=== PATIENT | male | born 1960 | race Caucasian/White ===

== ENCOUNTER 2020-06-23 10:57 | Emergency (ER) | payer BC, OTHER ==
[2020-06-23] MEDS ORDERED: Cyclobenzaprine 10 MG TAB ONE (11:27)
[2020-06-23] MEDS ORDERED: HYDROcodone/Acetaminophen 10/325 mg Tablet ONE (11:27)
== END 2020-06-23 12:33 | disposition home or self-care (01) ==
LOC: BURERS 10:57
DX: M51.36 Other intervertebral disc degeneration, lumbar region (principal); M47.816 Spondylosis without myelopathy or radiculopathy, lumbar region
CPT/HCPCS: 72131

== ENCOUNTER 2023-01-30 16:29 | Emergency (ER) | payer BC ==
[2023-01-30] MEDS ORDERED: Lidocaine 2% w/Epinephrine 1:200K 20 ML VIAL ONE (16:42)
[2023-01-30] MEDS ORDERED: Bacitracin 1 PK ONE (17:30)
[2023-01-30] MEDS ORDERED: Ketorolac Tromethamine 30 MG/ML VIAL ONE (17:30)
== END 2023-01-30 17:48 | disposition home or self-care (01) ==
LOC: BURERS 16:29
DX: S01.01XA Laceration without foreign body of scalp, initial encounter (principal); W26.8XXA Contact with other sharp object(s), not elsewhere classified, initial encounter
CPT/HCPCS: 12015; 70450; 96372; J1885